=== PATIENT | male | born 1960 | race Caucasian/White ===

== ENCOUNTER 2022-04-06 08:29 | Day surgery (SDC) | payer BC ==
[~2022-04-06] VITALS: Ht 182.9 cm; Wt 70.9 kg
[~2022-04-06 08:29] MED LIST: CLON-528 PO; LORA0.5T PO; SERT50TA PO
--- NOTE | 2022-04-06 09:00 | NUR ---
Dr. Garcia in room with patient; after discussion with patient, procedure cancelled. Dr. Garcia will contact patient's ordering MD to request PET scan. All patient questions answered.
[2022-04-06] MEDS ORDERED: LEVO75TA7 PO (09:22)
[2022-04-06] MEDS ORDERED: normal saline 1000ml 1,000 ML IV PRN (09:35)
== END 2022-04-06 09:15 | disposition home or self-care (01) ==
LOC: SSTAY O 08:29
PROVIDERS: ATTEND Radiology Diagnostic Radiology
DX: R91.1 Solitary pulmonary nodule (principal); Z53.8 Procedure and treatment not carried out for other reasons
CPT/HCPCS: J7030

== ENCOUNTER 2024-06-20 10:10 | Day surgery (SDC) | payer BC ==
[2024-06-16 10:23] LABS: BASOPHILS # (AUTO) 0.1 X10'3 (0-0.2); BASOPHILS % (AUTO) 0.6 % (0-1); EOSINOPHILS # (AUTO) 0.3 X10'3 (0-0.9); EOSINOPHILS % (AUTO) 3.2 % (0-6); HEMATOCRIT 35.9 % (42.0-52.0); HEMOGLOBIN 12.1 g/dl (14.0-17.9); LYMPHOCYTES # (AUTO) 1.2 X10'3 (1.1-4.8); LYMPHOCYTES % (AUTO) 12.9 % (21-51); MEAN CORPUSCULAR HEMOGLOBIN 31.7 PG (27.0-31.0); MEAN CORPUSCULAR HGB CONC 33.6 g/dL (33.0-36.5); MEAN CORPUSCULAR VOLUME 94.3 FL (78-98); MEAN PLATELET VOLUME 8.5 FL (7.4-10.4); MONOCYTES # (AUTO) 0.7 X10'3 (0-0.9); MONOCYTES % (AUTO) 7.5 % (2-12); NEUTROPHILS # (AUTO) 6.9 X10'3 (1.8-7.7); NEUTROPHILS % (AUTO) 75.8 % (42-75); PLATELET COUNT 355 X10'3 (140-440); RED CELL DISTRIBUTION WIDTH 14.3 % (11.5-14.5); WHITE BLOOD COUNT 9.1 X10'3 (4.5-11.0)
[2024-06-16 10:47] LABS: ALANINE AMINOTRANSFERASE 21 U/L (12-78); ALBUMIN 3.5 G/DL (3.4-5.0); ALBUMIN/GLOBULIN RATIO 0.8 (1.1-1.5); ALKALINE PHOSPHATASE 110 IU/L (46-116); ANION GAP 6 (8-16); ASPARTATE AMINO TRANSFERASE 17 U/L (10-37); BILIRUBIN,TOTAL 0.2 MG/DL (0.1-1.0); BLOOD UREA NITROGEN 25 MG/DL (7-18); BUN/CREATININE RATIO 32.5 (10.0-20.0); CALCIUM 9.6 MG/DL (8.5-10.1); CHLORIDE 103 MMOL/L (99-107); CREATININE 0.77 MG/DL (0.60-1.10); GLUCOSE 111 MG/DL (70-104); POTASSIUM 4.2 MMOL/L (3.5-5.1); SODIUM 140 MMOL/L (135-145); TOTAL CARBON DIOXIDE 30.8 MMOL/L (24-32); TOTAL PROTEIN 7.8 G/DL (6.4-8.2); eGFR > 90 ML/MIN
[2024-06-20] VITALS (10 sets, daily range): BP systolic 108–152; BP diastolic 58–91; PULSE 65–78; RESP 11–16; TEMP 98.9; O2SAT 95–100
[~2024-06-20] VITALS: Ht 185.4 cm; Wt 67.4 kg
[~2024-06-20 10:10] MED LIST changes: +ALBU8HFA INH; -CLON-528 PO; +GABA-530 PO; +HYDR-3973 PO; +IRON TABLET; +LEVO75TA7 PO; -LORA0.5T PO; +PENT400T17 PO; -SERT50TA PO; +VITAMIN C
[2024-06-20] MEDS: famotidine 20mg tablet PO ONE (10:38)
[2024-06-20] MEDS: ringers solution, lacted 1,000 ML IV SCH (10:45)
[2024-06-20] MEDS ORDERED: sevoflurane 250ml liquid IH ONE (11:11)
[2024-06-20] MEDS ORDERED: fentaNYL/PF 50MCG/1 ML 2ML syringe ONE (11:15)
[2024-06-20] MEDS ORDERED: midazolam 1 mg/ML 2ml injection ONE (11:15)
[2024-06-20] MEDS ORDERED: propofol inj 20 ML IV ONE (11:48)
[2024-06-20] MEDS ORDERED: dexamethasone sod phosphate 4mg/ml inj. ONE (11:48)
[2024-06-20] MEDS ORDERED: rocuronium 10mg/ml inj IV ONE (11:48)
[2024-06-20] MEDS ORDERED: sugammadex 200mg/2ml injection IV ONE (11:49)
== END 2024-06-20 13:54 | disposition home or self-care (01) ==
LOC: PAS 10:10
PROVIDERS: ATTEND Internal Medicine Critical Care Medicine
DX: R91.1 Solitary pulmonary nodule (principal); Z79.899 Other long term (current) drug therapy; Z87.891 Personal history of nicotine dependence; Z86.73 Personal history of transient ischemic attack (TIA), and cerebral infarction without residual deficits; Z98.890 Other specified postprocedural states; Z85.820 Personal history of malignant melanoma of skin; Z85.89 Personal history of malignant neoplasm of other organs and systems
CPT/HCPCS: 31628; 31629; 31653; 36415; 71250; 80053; 82948; 85025; 87015; 87070; 87116; 87206; 93005; 94760; J1100; J2250; J2704; J3010; J3490; J7120; Z7506; Z7508; Z7512; 31622; 31624; 31625; 31626; 31627; 31635; 31654; A4618